=== PATIENT | male | born 1990 | race African-American/Black ===

== ENCOUNTER 2019-02-20 07:36 | Emergency (ER) | payer SELFPAY ==
[~2019-02-20] VITALS: Ht 200.7 cm; Wt 93.0 kg
--- NOTE | 2019-02-20 08:20 | Diagnostic Imaging Report ---
Exam: Left ankle 3 views Clinical history: Trauma Findings: There is no evidence of acute fracture or malalignment. The articular joints are within normal limits. The soft tissue is unremarkable. Impression: 1. No radiographic evidence of acute osseous injury. Signed by: Dr. Jamaal Kelly MD on 02/20/2019 8:17 AM
[2019-02-20 08:34] VITALS: BP 147/81
== END 2019-02-20 08:48 | disposition home or self-care (01) ==
LOC: FSED 07:36
DX: S93.492A Sprain of other ligament of left ankle, initial encounter (principal); X50.1XXA Overexertion from prolonged static or awkward postures, initial encounter; Y93.67 Activity, basketball; Y92.310 Basketball court as the place of occurrence of the external cause; J45.909 Unspecified asthma, uncomplicated
CPT/HCPCS: 99283

== ENCOUNTER 2019-12-08 10:37 | Emergency (ER) | payer SELFPAY ==
[~2019-12-08] VITALS: Ht 200.7 cm; Wt 86.8 kg
--- OUTSIDE RECORDS SUMMARY | 2019-12-08 10:39 | XMS REPORT | Continuity of Care Document ---
Author Author [facility] Organization [facility] Address [address] [place] [address] [address] [place] [address] Phone Unavailable Care Team Providers Care Sample Grinder Name Role Phone NO, PCP PCP Unavailable NANCY COOPER Attphycierra Unavailable Problems This patient has no known problems. Allergies, Adverse Reactions, Alerts This patient has no known allergies or adverse reactions. Medications This patient has no known medications. Procedures This patient has no known procedures. Encounters Start Date/Time End Date/Time [facility] Source 2019-02-20 07:36:00 2019-02-20 08:48:00 Departed Emergency Room 1 NANCY COOPER [facility] [id number] [facility] Results Test Description Test Time Test Comments Results Result Comments Source ANKLE 3VIEW LT - HOPD 2019-02-20 08:17:00 [facility] [address] [place] [id number] Patient Name: ZOE KAUFMAN JR MR #: [id number] : 1990 Age/Sex: 28/M Req #: [id number] Adm Physician: Ordered by: NANCY COOPER MD Report #: [id number] Location: [facility] Room/Bed: Procedure: HOPD/ANKLE 3VIEW LT - HOPD Exam Date: 02/20/19 Exam Time: 08 REPORT STATUS: Signed Exam: Left ankle 3 views Clinical history: Trauma Findings: There is no evidence of acute fracture or malalignment. The articular joints are within normal limits. The soft tissue is unremarkable. Impression: 1. No radiographic evidence of acute osseous injury. Signed by: Dr. Jamaal Kelly MD on 02/20/2019 8:17 AM Dictated By: TERRENCE KELLY MD 6 Transcribed By: VANDANA on 02/20/19816 COPY TO: NANCY COOPER MD
--- NOTE | 2019-12-08 11:11 | Emergency Department Note ---
History of Present Illnes History of Present Illness Chief Complaint: Chest Pain History of Present Illness This is a 29 year old male, with a remote history of asthma, wh o presents with multiple complaints. Patient states that 2 days ago while at work in the evening, he developed nausea followed by headache and 2 episodes of vomiting. Since that time, patient's continued to have nausea he last vomited last night. He denies any abdominal pain, diarrhea, constipation or dysuria. He states that he developed central chest pain last night, that seems to have worsened today. He states that the pain "feels like someone is punching him in the chest constantly." He also describes some tightness in his chest. Patient has not had any issues with his asthma for about 15 years, and he does not believe that this feels similar to his asthma. He has had chills, but no fever. He has also had a cough for the past couple days, with yellow mucus production. He did take Tylenol last night for a headache, but it has also persisted. He denies any neck pain, stiffness, numbness, tingling, or focal weakness. He has no known sick contacts. Patient states that "he hopes that he doesn't have COVID." He denies any known exposures to COVID 19. Historian: Patient Arrival Mode: Car Additional Treatment MECHANIC FOREMAN: None Bill Clerk Required: No Onset (how long ago): day(s) (2) Location: chest, right frontal KELLER Quality: see HPI Radiation: Reports non-radiation Severity: moderate Onset quality: sudden Duration (how long): day(s) (2) Timing of current episode: constant Progression: worsening Chronicity: new Context: Denies recent illness, Denies recent travel, Denies trauma/injury, Denies hx of DVT/PE Associated symptoms: Reports chest pain, Reports cough, Reports headaches, Reports loss of appetite, Reports malaise, Reports nausea/vomiting; Denies fever/chills, Denies shortness of breath, Denies syncope Treatments prior to arrival: other (Tylenol) Past Medical/Family History Physician Review I have reviewed the patient's past medical and family history. Any updates have been documented here. Past Medical History Recent Fever: No Clinical Suspicion of Infectio: Yes New/Unexplained Change in Ment: No Past Medical History: Asthma Other Surgery: SHOULDER SURGERY X2 Social History Smoking Cessation: Never Smoker Alcohol Use: None Any Illegal Drug Use: No TB Exposure/Symptoms: No Physically hurt or threatened: No Family History Family history of heart diseas: No Other Last Tetanus: UTD Any Pre-Existing Lines (PICC,: No Is patient up to date on immun: Yes Review of Systems Review of Systems Constitutional: Reports chills, Reports malaise; Denies fever EENTM: Denies ear pain, Denies ear discharge, Denies nose congestion, Denies throat pain Cardiovascular: Reports chest pain; Denies palpitations, Denies syncope Respiratory: Reports change in phlegm color (yelloq) Gastrointestinal: Reports nausea, Reports vomiting; Denies abdominal pain, Denies constipation, Denies diarrhea Genitourinary: Reports no symptoms Musculoskeletal: Denies joint pain, Denies joint swelling, Denies muscle pain, Denies muscle stiffness, Denies neck pain Integumentary: Denies change in color, Denies rash Neurological: Reports headache Psychological: Reports no symptoms Hematological/Lymphatic: Reports no symptoms Review of other systems: All other systems negative Physical Exam Related Data Allergies: Coded Allergies: No Known Allergies (Unverified , 02/20/19) Vital signs reviewed: Yes Physical Exam CONSTITUTIONAL Constitutional: Reports well-developed, Reports well-nourished; Denies ill appearing HENT HENT: Reports normocephalic, Reports atraumatic, Reports oropharynx clear/mois t, Reports nose normal; Denies nasal congestion, Denies oropharyngeal exudate, Denies pharynx abnormal, Denies erythema HENT L/R: Reports left ext ear normal, Reports right ext ear normal EYES Eyes: Reports PERRL, Reports conjunctivae normal NECK Neck: Reports ROM normal, Reports supple; Denies JVD, Denies cervical adenopathy PULMONARY Pulmonary: Reports effort normal, Reports breath sounds normal CARDIOVASCULAR Cardiovascular: Reports regular rhythm, Reports heart sounds normal, Reports capillary refill normal, Reports normal rate GASTROINTESTINAL Abdominal: Reports soft, Reports nontender, Reports bowel sounds normal GENITOURINARY Genitourinary: Reports exam deferred SKIN Skin: Reports warm, Reports dry; Denies rash, Denies jaundiced, Denies bruising MUSCULOSKELETAL Musculoskeletal: Reports ROM normal NEUROLOGICAL Neurological: Reports alert, Reports oriented x 3, Reports no gross motor or sensory deficits PSYCHOLOGICAL Psychological: Reports mood/affect normal, Reports judgement normal Results Laboratory Laboratory CBC - nl except for WBC = 3.2, plt = 122 BMP - normal Liver - normal except amylase = 105 Cardiacs - normal D-dimer - normal Lab results reviewed: Yes Imaging Imaging results reviewed: Yes Impressions [place] [id number] Patient Name: ZOE KAUFMAN JR MR #: [id number] : 1990 Age/Sex: 29/M Req #: [id number] Adm Physician: Ordered by: NIKKI CHE MD Report #: [id number] Location: [facility] Room/Bed: ___ Procedure: [id number] HOPD/CXR 2 VIEW - HOPD Exam Date: 12/08/19 Exam Time: 1122 REPORT STATUS: Signed EXAMINATION: CXR 2 VIEW - HOPD INDICATION: Cough COMPARISON: None FINDINGS: LINES/TUBES:None LUNGS:The lungs are well-inflated. No focal consolidation or pulmonary edema. PLEURA:No pleural effusion or pneumothorax. MEDIASTINUM:The cardiomediastinal silhouette appears normal in size and shape. BONES/SOFT TISSUES:No acute osseous injury. ABDOMEN:No free air under the diaphragm. IMPRESSION: No focal pneumonia or pulmonary edema. Signed by: Ciera Lamar MD on 12/08/2019 11:47 AM Dictated By: CIERA LAMAR MD [id number] Transcribed By: VANDANA on 12/08/19 1147 COPY TO: NIKKI CHE MD~ Diagnostics Tests Diagnostic test(s) reviewed: Yes Procedures 12 Lead ECG Interpretation ECG Interpretation : ECG: ECG 1 Bill Clerk: Interpreted by ED physician Date: Dec 08, 2019 Time: 10:43 Prior ECG tracings: not available for review Rhythm: sinus bradycardia Rate: bradycardia BPM: 42 QRS axis: normal Conduction: incomplete RBBB ST segments normal: No (non-specific changes) T waves normal: Yes Clinical Impression: abnormal ECG Assessment & Plan Medical Decision Making MDM Drink plenty of fluids and stay in out of the heat for at least 24 - 48 hours, after symptoms resolve. No work x 3 days. Use the inhaler for cough and chest tightness. Return to the ER, if symptoms worsen: worsening cp, sob, persistent high fever or vomiting, or worsening headahce. Follow-up with Cardiology, regarding abnormalities seen on EKG, for further evaluation. Discussed with patient that he has an incomplete RBBB and non- specific ST changes. 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 Pt provided with copy of EKG, CXR and labs to take with him to see Cardiology. Pt provided with contact info for Dr. Sheree Wise. Pt voiced understanding of the plan. Assessment & Plan Final Impression: (1) Acute viral syndrome (2) Acute bronchitis with bronchospasm (3) Chest pain (4) Headache (5) Abnormal EKG Depart Disposition: HOME, SELF-longterm Meds Active Scripts Albuterol Sulf* (PROAIR HFA INHALER*) 8.5 Gm Inh, 2 PUMP INH Q4HR for cough and chest tightness, #1 INH 0 Refills Prov:NIKKI CHE MD 12/08/19 Azithromycin (ZITHROMAX) 250 Mg Tablet, 2 TAB PO as directed for 5 Days, #6 2 tabs po today, then 1 po daily x 4 days for infection. Complete 5 day course. Prov:NIKKI CHE MD 12/08/19 Ondansetron (ONDANSETRON ODT) 8 Mg Tab.rapdis, 4 MG PO Q6H for nausea and/or vomiting, #20 TAB 0 Refills Prov:NIKKI CHE MD 12/08/19 Ibuprofen (IBUPROFEN) 400 Mg Tablet, 600 MG PO Q6H for pain, #30 TAB 0 Refills Prov:NIKKI CHE MD 12/08/19 Discontinued Scripts Neomycin/Polymyxin B Sulf/Hc (VYEIINVE-COXC-JG EYE DROPS) 7.5 Ml Drops.susp, 2 DROP OS TID for 7 Days, #7.5 ML 0 Refills Prov:NIKKI CHE MD 12/08/19 NIKKI CHE MD Dec 08, 2019 11:11
[2019-12-08] MEDS ORDERED: ONDANSETRON HCL INJ 2MG/ML 2ML 2 MG/ML VIAL IV STA (11:14)
[2019-12-08] MEDS ORDERED: KETOROLAC TROMETHAMINE 30 MG/ML VIAL IV STA (11:14)
[2019-12-08] MEDS ORDERED: SODIUM CHLORIDE 0.9% 1000ML 1,000 ML IV SCH ×2 (11:15→12:45)
[2019-12-08] MEDS ORDERED: ONDANSETRON HCL INJ 2MG/ML 2ML 2 MG/ML VIAL ONE (11:27)
[2019-12-08] MEDS ORDERED: KETOROLAC TROMETHAMINE 30 MG/ML VIAL ONE (11:27)
[2019-12-08] MEDS ORDERED: SODIUM CHLORIDE 0.9% 1000ML 1,000 ML ONE ×2 (11:28→12:53)
--- NOTE | 2019-12-08 11:51 | Diagnostic Imaging Report ---
EXAMINATION: CXR 2 VIEW - HOPD INDICATION: Cough COMPARISON: None FINDINGS: LINES/TUBES:None LUNGS:The lungs are well-inflated. No focal consolidation or pulmonary edema. PLEURA:No pleural effusion or pneumothorax. MEDIASTINUM:The cardiomediastinal silhouette appears normal in size and shape. BONES/SOFT TISSUES:No acute osseous injury. ABDOMEN:No free air under the diaphragm. IMPRESSION: No focal pneumonia or pulmonary edema. Signed by: Analia Zamarripa MD on 12/08/2019 11:47 AM
[2019-12-08] MEDS ORDERED: NEOMYCIN-POLY-7.5 ML OS (12:06)
[2019-12-08] MEDS ORDERED: HYDROCODONE/APAP 5MG-325MG TAB PO ONE (12:45)
[2019-12-08] MEDS ORDERED: HYDROCODONE/APAP 5MG-325MG TAB ONE (12:53)
[2019-12-08] MEDS ORDERED: IBUPROFEN400 MG PO (14:14)
[2019-12-08] MEDS ORDERED: ONDANSETRON ODT8 MG PO (14:15)
[2019-12-08] MEDS ORDERED: ZITHROMAX250 MG PO (14:25)
[2019-12-08] MEDS ORDERED: PROAIR HFA INH8.5 GM INH (14:27)
[2019-12-08 15:09] VITALS: BP 112/72
== END 2019-12-08 14:47 | disposition home or self-care (01) ==
LOC: FSED 10:37
DX: R51 Headache (principal); R07.9 Chest pain, unspecified; J20.9 Acute bronchitis, unspecified; B34.9 Viral infection, unspecified; R94.31 Abnormal electrocardiogram [ECG] [EKG]
CPT/HCPCS: 71046; 80048; 80076; 81003; 82553; 84484; 85025; 85379; 96374; 96375; 99284; J1885; J2405; J7030; 93005